=== PATIENT | female | born 1970 | race Caucasian/White ===

== ENCOUNTER 2020-06-17 17:11 | Emergency (ER) | payer BC ==
[~2020-06-17] VITALS: Ht 162.6 cm; Wt 98.9 kg
[2020-06-17 17:15] VITALS: BP 152/102
--- NOTE | 2020-06-17 17:20 | NUR ---
49 Y/O F BIB SELF FROM HOME, PATIENT PRESENTS TO ED WITH EPIGASTRIC PAIN THAT RADIATES TO LOWER BACK AND UPPER QUADRANTS IN ABD. PT STATES PAIN STARTED TODAY AROUND @1100 WITH NAUSEA, NO VOMITING; SKIN IS PINK/WARM/DRY; AAOX4 WITH EVEN AND STEADY GAIT; LUNGS CLEAR BL; HR EVEN AND REGULAR; PT DENIES ANY FEVER, CP, SOB, OR COUGH AT THIS TIME; PATIENT STATES PAIN OF 9/10 AT THIS TIME; VSS; PATIENT POSITIONED FOR COMFORT; HOB ELEVATED; BEDRAILS UP X2; BED DOWN. ER MD MADE AWARE OF PT STATUS. DENIES HEADACHE, PAINFUL URINATION, CONSTIPATION AND DIARRHEA. PMH: NONE MED: NONE NKA
--- NOTE | 2020-06-17 17:21 | NUR ---
PATOENT AMBULATED TO BED2. HANDED ON URINE CUP.
--- NOTE | 2020-06-17 17:29 | NUR ---
ERMD IN ROOM ASSESSING PT.
[2020-06-17] MEDS ORDERED: IBUP-2213 PO (17:46)
[2020-06-17] MEDS ORDERED: OMEP40EC24 PO (17:46)
[2020-06-17] MEDS ORDERED: ACET-8386 PO (17:46)
[2020-06-17] MEDS ORDERED: ONDA8TAB87 PO (17:46)
[2020-06-17 17:58] VITALS: BP 152/102
--- NOTE | 2020-06-17 17:58 | NUR ---
Patient discharged with v/s stable. Written and verbal after care instructions given and explained. Patient alert, oriented and verbalized understanding of instructions. Ambulatory with steady gait. All questions addressed prior to discharge. ID band removed. Patient advised to follow up with PMD. Rx of ibuprofen 600mg TID po orn pain, norco q6h prn pain,omeprazole 40mg PO PRN prilosec, [place] 8mg Po q8h given. Patient educated on indication of medication including possible reaction and side effects. Opportunity to ask questions provided and answered.
== END 2020-06-17 17:58 | disposition home or self-care (01) ==
LOC: MED 17:11
DX: K80.20 Calculus of gallbladder without cholecystitis without obstruction (principal)
CPT/HCPCS: 99283